=== PATIENT | female | born 1990 | race African-American/Black ===

== ENCOUNTER 2018-01-07 17:14 | Emergency (ER) | payer MEDICAID ==
[~2018-01-07] VITALS: Ht 167.6 cm; Wt 125.0 kg
[2018-01-07] MEDS ORDERED: ONDANSETRON HCL 4MG/2ML VIAL IV STA (21:04)
[2018-01-07] MEDS ORDERED: SODIUM CHLORIDE 0.9% 1,000 ML IV ONE (21:04)
[2018-01-07] MEDS ORDERED: ONDANSETRON 4MG ODT PO ONE (21:30)
[2018-01-07 21:46] LABS: CLARITY URINE CLOUDY (CLEAR); COLOR URINE DARK YELLOW (YELLOW); KETONES URINE 3+ (NEGATIVE); LEUKOCYTE ESTERASE URINE NEGATIVE (NEGATIVE); NITRITE URINE NEGATIVE (NEGATIVE); OCCULT BLOOD URINE 2+ (NEGATIVE); PROTEIN URINE TRACE (NEGATIVE); SPECIFIC GRAVITY URINE 1.032 (1.005-1.030)
[2018-01-07] MEDS ORDERED: IBUPROFEN 600MG TABLET PO ONE (22:00)
[2018-01-07 22:21] VITALS: BP 100/60
== END 2018-01-07 22:28 | disposition home or self-care (01) ==
LOC: ER 17:14
DX: N94.6 Dysmenorrhea, unspecified (principal); N83.209 Unspecified ovarian cyst, unspecified side
CPT/HCPCS: 81001; 81025; 99283; J7030; Q0162; Z7610